=== PATIENT | female | born 1950 | race Caucasian/White ===

== ENCOUNTER → 2019-06-16 | Outpatient (CLI) | payer MEDICARE ==
--- NOTE | 2019-06-16 14:33 | PCVCIMAG ---
APPROVED REPORT Study performed: 06/16/2019 13:54:26 EXAM: Comprehensive 2D, Doppler, and color-flow Echocardiogram Patient Location: Echo lab Status: routine BSA: 1.56 HR: 73 bpmBP: 156/82 mmHg Rhythm: NSR Other Information Study Quality: Adequate Risk Factors: Cardiac Risk Factors: HTN, Smoking Indications Pacemaker long QT syndrome 2D Dimensions IVSd: 9.70 (7-11mm) LVDd: 43.91 mm PWd: 10.23 (7-11mm) LVDs: 29.54 (25-40mm) Left Atrium: 36.61 (27-40mm) Aortic Root: 31.49 mm LV Single Plane 4CH: 65.73 % LV Single Plane 2CH: 67.35 % Biplane EF: 68.0 % Volumes Left Atrial Volume (Systole) Single Plane 4CH: 43.86 mLSingle Plane 2CH: 66.64 mL LA ESV Index: 36.00 mL/m2 Aortic Valve AoV Peak [place].: 1.74 m/s AO Peak Gr.: 12.16 mmHgLVOT Max P.15 mmHg LVOT Max V: 1.43 m/s AI Vmax: 4.37 m/s AI Bureau: 2.07 m/s2 AI PHT: 611.64 ms Mitral Valve E/A Ratio: 0.9 MV Decel. Time: 205.46 ms MV E Max Phoenix.: 0.96 m/s MV A [place].: 1.07 m/s IVRT: 86.51 ms Pulmonary Valve PV Peak Phoenix.: 0.94 m/sPV Peak Gr.: 3.53 mmHg Pulmonary Vein P Vein S: 0.45 m/sP Vein A: 0.33 m/s P Vein D: 0.56 m/sP Vein A Dur.: 128.0 msec P Vein S/D Ratio: 0.80 Tricuspid Valve TR Peak [place].: 2.97 m/s TR Peak Gr.: 35.32 mmHg Left Ventricle The left ventricle is normal size. There is normal LV segmental wall motion. There is normal left ventricular wall thickness. Left ventricular systolic function is normal. The left ventricular ejection fraction is within the normal range. LVEF is 65%. Grade I - abnormal relaxation pattern. Right Ventricle The right ventricle is normal size. The right ventricular systolic function is normal. Pacemaker lead is present in the right ventricle. Atria Left atrium is mildly dilated. The right atrium size is normal. Pacemaker lead is present in the right atrium. Aortic Valve The aortic valve is normal in structure. Mild aortic regurgitation. There is no aortic valvular stenosis. Mitral Valve The mitral valve is normal in structure. Mild mitral regurgitation. No evidence of mitral valve stenosis. Tricuspid Valve The tricuspid valve is normal in structure. Mild tricuspid regurgitation with PAP of 42 mmHg. Pulmonic Valve The pulmonary valve is normal in structure. There is no pulmonic valvular regurgitation. Great Vessels The aortic root is normal in size. IVC is normal in size and collapses >50% with inspiration. Pericardium There is no pericardial effusion. There is no pleural effusion. <Conclusion> The left ventricle is normal size. There is normal left ventricular wall thickness. Left ventricular systolic function is normal. Grade I - abnormal relaxation pattern. The right ventricle is normal size. Pacemaker lead is present in the right ventricle. Left atrium is mildly dilated. The right atrium size is normal. Pacemaker lead is present in the right atrium. Mild aortic regurgitation. Mild mitral regurgitation. Mild tricuspid regurgitation with PAP of 42 mmHg.
== END | disposition home or self-care (01) ==
LOC: PCVCIMAG 13:43
PROVIDERS: ATTEND Internal Medicine Cardiovascular Disease
DX: I08.3 Combined rheumatic disorders of mitral, aortic and tricuspid valves (principal); Z95.0 Presence of cardiac pacemaker
CPT/HCPCS: 93306